=== PATIENT | female | born 1945 | race Caucasian/White ===

== ENCOUNTER 2017-01-07 14:50 | Emergency (ER) | payer MEDICARE ==
[~2017-01-07] VITALS: Ht 157.5 cm; Wt 77.0 kg
[~2017-01-07 14:50] MED LIST: AMLODIPINE BESY10 MG PO; AMLODIPINE5 MG PO; ASPIRIN81 MG PO; BENZONATATE200 MG PO; HYDROCHLORO25 MG/TAB PO; LIPITOR10 MG PO; MEDDOSEPAK PO; METOPROLOL SUC100 MG PO; MUCINEX600 MG PO; PHENERGAN12.5 MG/TA PO; PROZAC20 MG PO; QUINAPRIL10 MG PO; QUINAPRIL40 MG PO; RANITIDINE150 M1 OR; SPIRIVA HANDIHALER IN; VENLAFAXINE HC150 MG OR; XOPENEX HFA IN; ZOFRAN4 MG/TAB PO
[2017-01-07] MEDS ORDERED: ZOFRAN ODT4 MG PO (16:10)
[2017-01-07 16:17] VITALS: BP 131/50
== END 2017-01-07 16:20 | disposition home or self-care (01) ==
LOC: ED 14:50
DX: S00.83XA Contusion of other part of head, initial encounter (principal); S80.02XA Contusion of left knee, initial encounter; S50.02XA Contusion of left elbow, initial encounter; W01.0XXA Fall on same level from slipping, tripping and stumbling without subsequent striking against object, initial encounter; Y93.K9 Activity, other involving animal care; Y92.009 Unspecified place in unspecified non-institutional (private) residence as the place of occurrence of the external cause; R11.2 Nausea with vomiting, unspecified

== ENCOUNTER 2018-02-01 10:55 | Emergency (ER) | payer MEDICARE ==
[~2018-02-01] VITALS: Ht 157.5 cm; Wt 75.0 kg
[~2018-02-01 10:55] MED LIST changes: +ZOFRAN ODT4 MG PO
[2018-02-01 11:54] LABS: IMMATURE GRANULOCYTES 0.5 % (0.0-5.0); MEAN CELL VOLUME 86.5 fL CALC (80.0-100.0); MEAN CORPUSCULAR HGB 28.2 pG CALC (26.0-32.0); MEAN CORPUSCULAR HGB CONC 32.6 g/L CALC (32.0-36.0); NEUT# 5.05 thou/uL (2.00-7.15); RED BLOOD COUNT 4.44 mill/uL (4.20-5.60); RED CELL DISTRI WIDTH 15.3 % (11.5-15.5)
[2018-02-01 11:58] LABS: HEMOGLOBIN 12.5 g/dl (12.0-16.0)
[2018-02-01 11:59] LABS: HEMATOCRIT 38.4 % (37.0-47.0)
[2018-02-01 12:04] LABS: ALKALINE PHOSPHATASE 91 u/l (38-126); AMYLASE 65 u/l (30-110); ANION GAP 16 (6-22 (CALC)); BILIRUBIN, TOTAL 0.7 mg/dL (0.0-1.4); BUN 17 mg/dL (8-23); BUN/CREATININE RATIO 25 (12-20 (CALC)); CARBON DIOXIDE 28 mmol/l (22-30); CHLORIDE 103 mmol/l (95-108); CREATININE 0.7 mg/dL (0.5-1.0); GFR > 60 ML/MIN (>=60 (CALC)); GFR FOR AFR.AMER. > 60 ML/MIN (>=60 (CALC)); LIPASE 49 u/l (23-300); POTASSIUM 4.1 mmol/l (3.5-5.1); SGOT/AST 26 u/l (9-36); SODIUM 143 mmol/l (137-146); TOTAL PROTEIN 7.1 g/dL (6.3-8.2)
[2018-02-01 12:05] LABS: ALBUMIN 4.4 g/dL (3.2-5.0)
[2018-02-01] MEDS ORDERED: PHENERGAN25 MG/TAB PO (15:34)
[2018-02-01 16:09] VITALS: BP 136/63
== END 2018-02-01 16:35 | disposition home or self-care (01) ==
LOC: ED 10:55
PROVIDERS: Family Medicine
DX: K52.9 Noninfective gastroenteritis and colitis, unspecified (principal); K58.9 Irritable bowel syndrome, unspecified; I10 Essential (primary) hypertension

== ENCOUNTER 2019-07-11 12:04 | Inpatient (IN) | payer MEDICARE ==
[2019-07-11] VITALS (16 sets, daily range): BP systolic 75–133; BP diastolic 51–90
[~2019-07-11] VITALS: Ht 157.5 cm; Wt 86.7 kg
[~2019-07-11 12:04] MED LIST changes: +PHENERGAN25 MG/TAB PO
--- NOTE | 2019-07-11 12:05 | NUR ---
PT TO ROOM VAI WHEELCHAIR FOR BEDSIDE TRIAGE.
--- NOTE | 2019-07-11 12:18 | NUR ---
PT ASSESSED. CHANGED TO GOWN. MONITORS IN PLACE. EKG DONE. PT REPORTS RAPID HEART RATE. SENT FROM CLINIC. PT AO X 3. SKIN PINK WARM AND DRY. DENIES CHEST PAIN. RAN OUT OF METOPROLOL 2 DAYS AGO
[2019-07-11 12:36] LABS: HEMATOCRIT 43.2 % (37.0-47.0); IMMATURE GRANULOCYTES 0.3 % (0.0-5.0); MEAN CELL VOLUME 92.3 fL CALC (80.0-100.0); MEAN CORPUSCULAR HGB 29.9 pG CALC (26.0-32.0); MEAN CORPUSCULAR HGB CONC 32.4 g/dL CAL (32.0-36.0); NEUT# 4.41 thou/uL (2.00-7.15); RED BLOOD COUNT 4.68 mill/uL (4.20-5.60); RED CELL DISTRI WIDTH 12.8 % (11.5-15.5)
[2019-07-11 12:49] LABS: PROTHROMBIN TIME 10.7 SECONDS (9.0-12.5)
[2019-07-11 12:51] LABS: ALBUMIN 4.4 g/dL (3.2-5.0); ALKALINE PHOSPHATASE 76 u/l (38-126); BUN 17 mg/dL (8-23); BUN/CREATININE RATIO 24 (12-20 (CALC)); CHLORIDE 104 mmol/l (95-108); CREATININE 0.7 mg/dL (0.5-1.0); GFR > 60 ML/MIN (>=60 (CALC)); GFR FOR AFR.AMER. > 60 ML/MIN (>=60 (CALC)); SGOT/AST 26 u/l (9-36); SODIUM 137 mmol/l (137-146)
[2019-07-11 12:55] LABS: ANION GAP 12 (6-22 (CALC)); BILIRUBIN, TOTAL 0.7 mg/dL (0.0-1.4); CARBON DIOXIDE 25 mmol/l (22-30); TOTAL PROTEIN 7.5 g/dL (6.3-8.2)
[2019-07-11 13:03] LABS: MYOGLOBIN 38 ng/mL (0 - 62)
--- NOTE | 2019-07-11 13:10 | NUR ---
R[facility] KILPATRICKIP ON HOLD FOR HR OF 88. DR PHILLIPS AWARE
--- NOTE | 2019-07-11 13:35 | NUR ---
CARDIZEM DRIP STARTED AT 5MG/HR
[2019-07-11] MEDS ORDERED: ELIQUIS5 MG PO (14:39)
[2019-07-11] MEDS ORDERED: LISINOPRIL2.5 MG PO (14:40)
[2019-07-11] MEDS ORDERED: LIPITOR20 M1 PO (14:41)
[2019-07-11] MEDS ORDERED: OMEPRAZOLE DR20 MG PO (14:42)
[2019-07-11] MEDS ORDERED: ASPIRIN81 MG PO (14:42)
[2019-07-11] MEDS ORDERED: TYLENOL 8 HOUR650 MG PO (14:43)
--- NOTE | 2019-07-11 14:46 | NUR ---
REPORT GIVEN TO AMBROSE RYAN. ICU
--- NOTE | 2019-07-11 14:46 | NUR ---
PT UNABLE TO URINATE AT THIS TIME
--- NOTE | 2019-07-11 15:10 | NUR ---
PT TO ICU BED 4 VIA STRETCHER ACCOMPANIED BY ER NURSE. PT ABLE TO AMBULATE TO BED WITH STEADY GAIT. ADMISSION ASSESSMENT COMPLETED AT THIS TIME. IV PATENT X1. ALERT AND ORIENTED X3. CALL LIGHT IN REACH. WILL CONTINUE TO MONITOR.
--- NOTE | 2019-07-11 15:15 | NUR ---
PT TAKEN VIA STRETCHER, MONITOR IN PLACE TO ICU
--- NOTE | 2019-07-11 15:45 | NUR ---
CASE MANAGEMENT AT BEDSIDE.
--- NOTE | 2019-07-11 16:30 | NUR ---
PT ASSISTED TO AMBULATE TO BATHROOM TO VOID. URINE SPECIMEN OBTAINED AT THIS TIME. PT TOLERATED AMBULATING WELL.
--- NOTE | 2019-07-11 17:15 | NUR ---
PT SET UP FOR PM MEAL AT THIS TIME.
[2019-07-11 17:46] LABS: URINE BILIRUBIN - DIPSTICK NEGATIVE (NEGATIVE); URINE BLOOD DIPSTICK NEGATIVE (NEGATIVE); URINE COLOR YELLOW; URINE GLUCOSE - DIPSTICK NEGATIVE (NEGATIVE); URINE KETONE NEGATIVE (NEGATIVE); URINE LEUK ESTERASE NEGATIVE (NEGATIVE); URINE NITRITE - DIPSTICK NEGATIVE (Negative); URINE PROTEIN - DIPSTICK NEGATIVE (NEG-TRACE); URINE UROBILINOGEN - DIPSTICK 0.2 E.U./dL (0.2)
--- NOTE | 2019-07-11 18:13 | NUR ---
LAB AT BEDSIDE AT THIS TIME.
--- NOTE | 2019-07-11 18:45 | NUR ---
RECEIVED REPORT FROM AMBROSE RYAN.
--- NOTE | 2019-07-11 19:00 | NUR ---
RECEIVED PT AAOX3. CARDIZEM INFUSING AT 15MG/HR WITH NS AT KVO. SLIGHT RLE WEAKNESS NOTED. PT RELATED THAT WAS FROM A PREVIOUS STROKE. NO NEEDS AT THIS TIME. CALL SOUSA IN REACH.
--- NOTE | 2019-07-11 20:00 | NUR ---
PT AWAKE AND ALERT, WATCHING TV. NO NEEDS AT THIS TIME. CALL SOUSA IN REACH.
--- NOTE | 2019-07-11 20:25 | NUR ---
PT AMB TO BR WITH MIN ASSIST. RETURNED TO BED.
--- NOTE | 2019-07-11 20:35 | NUR ---
CARDIZEM RATE DECREASED TO 10MG/HR HR92 B/P 133/72.
--- NOTE | 2019-07-11 22:00 | NUR ---
PT RELATED H/A IMPROVED AFTER TYLENOL. WATCHING TV, NO NEEDS AT THIS TIME. CALL SOUSA IN REACH.
--- NOTE | 2019-07-11 23:45 | NUR ---
CARDIZEM GTT REDUCED TO 5MG/HR. PT REMAINS AFIB 70-90.
[2019-07-12] VITALS (14 sets, daily range): BP systolic 83–129; BP diastolic 47–74
--- NOTE | 2019-07-12 | NUR ---
ASSISTED PT TO BR. RETURNED TO BED. NO C/O PAIN, CARDIZEM GTT INFUSING. CALL SOUSA IN REACH.
--- NOTE | 2019-07-12 00:39 | NUR ---
LAB AT BEDSIDE.
--- NOTE | 2019-07-12 02:00 | NUR ---
PT AWAKE AND ALERT, USING CELL PHONE. NO COMPLAINTS AT THIS TIME. CALL SOUSA IN REACH.
--- NOTE | 2019-07-12 04:00 | NUR ---
PT WITH EYES CLOSED, RESPONDED TO VERBAL STIMULI. DENIED CHEST PAIN OR HEADACHE AT THIS TIME. NO NEEDS AT THIS TIME. CALL SOUSA IN REACH.
--- NOTE | 2019-07-12 05:25 | NUR ---
LAB AT BEDSIDE.
[2019-07-12 05:57] LABS: CHOLESTEROL HDL RATIO 2.8 (<4.4 (CALC)); MAGNESIUM 1.8 mg/dL (1.6-2.3)
--- NOTE | 2019-07-12 06:18 | NUR ---
PTWITH EYES CLOSED, REPONDS TO VERBAL STIMULI. NO COMPLAINTS OF PAIN. NO NEEDS AT THIS TIME. CALL SOUSA IN REACH. REMAINS IN AFIB RATE 70'S.
--- NOTE | 2019-07-12 06:45 | NUR ---
REPORT RECEIVED FROM Silvia MOLINA RN. CARE ASSUMED.
--- NOTE | 2019-07-12 07:15 | NUR ---
PT RESTING IN BED AWAKE. PT IS ALERT AND ORIENTED X3. SHIFT ASSESSMENT COMPLETED AT THIS TIME. IV PATENT X1. CALL LIGHT IN REACH. WILL CONTINUE TO MONITOR.
--- NOTE | 2019-07-12 07:45 | NUR ---
PT SET UP FOR AM MEAL
--- NOTE | 2019-07-12 08:00 | NUR ---
PT AMBULATED TO RESTROOM TO VOID THEN UP TO RECLINER AT THIS TIME.
--- NOTE | 2019-07-12 09:49 | NUR ---
PT SITTING UP IN RECLINER REMAINS AFIB ON MONITOR RATE 86. NO DISTRESS NOTED. CALLLIGHT IN REACH.
--- NOTE | 2019-07-12 11:10 | NUR ---
PT UP TO BATHROOM AND MOVING AROUND ROOM, PT ALERT/ORIENTED, EBONI, STATES SHE FEELS MUCH BETTER AND FEELS LIKE SHE IS READY TO GO HOME, VSS
--- NOTE | 2019-07-12 11:12 | NUR ---
SPOKE WITH DR BOOM [employer] [facility]. WANTS PT TO AMBULATE.
--- NOTE | 2019-07-12 11:21 | NUR ---
PT AMBULATED AROUND UNIT HR 90 DID PEAK AT 119. PT DENIES DIZZINES DENIES SOB. RECOVERS TO A HR OF 80-90 AT REST
--- NOTE | 2019-07-12 12:00 | NUR ---
DISCHARGE INSTRUCTIONS GIVEN. PT VERBALIZED UNDERSTANDING. IV SITE DC'D CATH TIP INTACT. PT TOLERATED WELL.
--- NOTE | 2019-07-12 12:15 | NUR ---
Discharge instructions given. Patient verbalizes understanding of same. Discharged in stable condition via Wheelchair to Home with family. All belongings sent with pt.
== END 2019-07-12 12:15 | disposition home or self-care (01) | DRG 310 ==
LOC: ED 12:04 → ED-I 13:20 → ED 13:39 → ICU 13:40
PROVIDERS: Emergency Medicine; ADMIT Internal Medicine; ATTEND Internal Medicine
DX: I48.0 Paroxysmal atrial fibrillation (principal); I10 Essential (primary) hypertension; Z79.01 Long term (current) use of anticoagulants; Z86.73 Personal history of transient ischemic attack (TIA), and cerebral infarction without residual deficits; Z87.891 Personal history of nicotine dependence
CPT/HCPCS: J1650

== ENCOUNTER 2019-09-19 11:36 | Emergency (ER) | payer MEDICARE ==
[~2019-09-19] VITALS: Ht 152.4 cm; Wt 88.5 kg
[~2019-09-19 11:36] MED LIST changes: +ELIQUIS5 MG PO; +LIPITOR20 M1 PO; +LISINOPRIL2.5 MG PO; +OMEPRAZOLE DR20 MG PO; +TYLENOL 8 HOUR650 MG PO
[2019-09-19 12:18] LABS: IMMATURE GRANULOCYTES 0.4 % (0.0-5.0); MEAN CORPUSCULAR HGB 28.4 pG CALC (26.0-32.0); MEAN CORPUSCULAR HGB CONC 31.5 g/dL CAL (32.0-36.0); NEUT# 6.35 thou/uL (2.00-7.15); RED BLOOD COUNT 4.02 mill/uL (4.20-5.60); RED CELL DISTRI WIDTH 14.6 % (11.5-15.5)
[2019-09-19 12:28] LABS: HEMATOCRIT 36.2 % (37.0-47.0); HEMOGLOBIN 11.4 g/dl (12.0-16.0)
[2019-09-19 12:40] LABS: ANION GAP 16 (6-22 (CALC)); BUN 28 mg/dL (8-23); BUN/CREATININE RATIO 38 (12-20 (CALC)); CARBON DIOXIDE 24 mmol/l (22-30); CHLORIDE 97 mmol/l (95-108); CREATININE 0.7 mg/dL (0.5-1.0); GFR > 60 ML/MIN (>=60 (CALC)); GFR FOR AFR.AMER. > 60 ML/MIN (>=60 (CALC)); LIPASE 100 u/l (23-300); MAGNESIUM 1.7 mg/dL (1.6-2.3); POTASSIUM 3.7 mmol/l (3.5-5.1); SODIUM 134 mmol/l (137-146); TOTAL PROTEIN 6.3 g/dL (6.3-8.2)
[2019-09-19 12:44] LABS: ALKALINE PHOSPHATASE 121 u/l (38-126); BILIRUBIN, TOTAL 1.2 mg/dL (0.0-1.4); SGOT/AST 74 u/l (9-36)
[2019-09-19 12:47] LABS: ACT PARTIAL THROMBO TIME 26.8 SECONDS (20.0-32.5); INTERNATIONAL NORMALIZED RATIO 1.4 RATIO (0.7-1.3); PROTHROMBIN TIME 13.9 SECONDS (9.0-12.5)
[2019-09-19 16:01] VITALS: BP 111/70
--- NOTE | 2019-09-21 09:02 | NUR ---
PRELIM BLOOD CX SHOW BACILLUS SPECIES, CONTAMINANT. PT WAS TRANSFERRED TO [facility]. SPOKE WITH NURSE DIANNA AND FAXED RESULTS TO [id number]
== END 2019-09-19 15:45 | disposition short-term general hospital (02) ==
LOC: ED 11:36
DX: I48.92 Unspecified atrial flutter (principal); J18.9 Pneumonia, unspecified organism; E87.2 Acidosis; I10 Essential (primary) hypertension; I48.91 Unspecified atrial fibrillation; Z86.73 Personal history of transient ischemic attack (TIA), and cerebral infarction without residual deficits; Z20.828 Contact with and (suspected) exposure to other viral communicable diseases
CPT/HCPCS: J0282

== ENCOUNTER 2022-08-06 10:29 | Emergency (ER) | payer MEDICARE ==
[~2022-08-06] VITALS: Ht 157.5 cm; Wt 90.0 kg
[2022-08-06] VITALS (9 sets, daily range): BP systolic 126–173; BP diastolic 54–79
[2022-08-06 12:07] LABS: BASO% 0.4 % (0-3); EOS% 1.9 % (0-8); HEMATOCRIT 36.6 % (37.0-47.0); HEMOGLOBIN 11.5 g/dl (12.0-16.0); IMMATURE GRANULOCYTES 0.2 % (0.0-5.0); LYMPH% 24.1 % (15-41); MEAN CELL VOLUME 95.3 fL CALC (80.0-100.0); MEAN CORPUSCULAR HGB 29.9 pG CALC (26.0-32.0); MEAN CORPUSCULAR HGB CONC 31.4 g/dL CAL (32.0-36.0); MONO% 7.6 % (2-13); NEUT# 3.44 thou/uL (2.00-7.15); NEUT% 65.8 % (42-76); RED BLOOD COUNT 3.84 mill/uL (4.20-5.60); RED CELL DISTRI WIDTH 13.4 % (11.5-15.5)
[2022-08-06 12:35] LABS: ALBUMIN 4.1 g/dL (3.2-5.0); ALKALINE PHOSPHATASE 65 u/l (38-126); ANION GAP 9 (6-22 (CALC)); BUN 19 mg/dL (8-23); BUN/CREATININE RATIO 27 (12-20 (CALC)); CARBON DIOXIDE 31 mmol/l (22-30); CHLORIDE 103 mmol/l (95-108); CREATININE 0.7 mg/dL (0.5-1.0); GFR FOR AFR.AMER. > 60 ML/MIN (>=60 (CALC)); GFR OTHER RACES > 60 ML/MIN (>=60 (CALC)); POTASSIUM 4.5 mmol/l (3.5-5.1); SGOT/AST 24 u/l (9-36); SODIUM 139 mmol/l (137-146); TOTAL PROTEIN 6.8 g/dL (6.3-8.2)
[2022-08-06 12:39] LABS: BILIRUBIN, TOTAL 0.2 mg/dL (0.02-1.3)
== END 2022-08-06 14:49 | disposition home or self-care (01) ==
LOC: ED 10:29
PROVIDERS: Family Medicine
DX: S00.83XA Contusion of other part of head, initial encounter (principal); I48.91 Unspecified atrial fibrillation; I10 Essential (primary) hypertension; I25.2 Old myocardial infarction; W18.30XA Fall on same level, unspecified, initial encounter; Y92.002 Bathroom of unspecified non-institutional (private) residence as the place of occurrence of the external cause; Z95.0 Presence of cardiac pacemaker; Z79.01 Long term (current) use of anticoagulants; Z86.73 Personal history of transient ischemic attack (TIA), and cerebral infarction without residual deficits